=== PATIENT | female | born 1945 | race Asian ===

== ENCOUNTER → 2018-02-20 | Outpatient (CLI) | payer MEDICARE, OTHER ==
--- NOTE | 2018-03-11 08:44 | Diagnostic Imaging Report ---
#[id number] - MGSCRBIL #BILATERAL DIGITAL SCREENING MAMMOGRAM WITH CAD: 02/20/2018 CLINICAL: Routine screening. No prior exams were available for comparison. Current study contains 4 films. The tissue of both breasts is predominantly fatty. Current study was also evaluated with a Computer Aided Detection (CAD) system. There is benign appearing right breast tissue asymmetry/density and a single benign calcification in the right breast. No significant masses, calcifications, or other findings are seen in either breast. IMPRESSION: BENIGN There is no mammographic evidence of malignancy. A 1 year screening mammogram is recommended. The patient will be notified by letter of the results. Cooper Weiss Jr., D.O. cw/:03/10/2018 12:40:21 Account Analyst: Maricruz GIL)(Alyssa), [facility] letter sent: Normal Exam Mammogram BI-RADS: 2 Benign
== END ==
LOC: MAMMO 09:48
PROVIDERS: ATTEND Family Medicine Adult Medicine
DX: Z12.31 Encounter for screening mammogram for malignant neoplasm of breast (principal)
CPT/HCPCS: 77067

== ENCOUNTER 2018-09-13 21:36 | Inpatient (IN) | payer MEDICARE, OTHER ==
[~2018-09-13] VITALS: Ht 152.4 cm; Wt 55.8 kg
[2018-09-13] MEDS ORDERED: METRONIDAZOLE 500MG/NS 100ML 100 ML IV ONE (22:54)
[2018-09-13] MEDS ORDERED: PIPERACILLIN/TAZO 2.25 GM 50 ML IV ONE (22:55)
[2018-09-13] MEDS ORDERED: SODIUM CHLORIDE 0.9% 50ML 50 ML ONE (22:56)
[2018-09-13] MEDS ORDERED: IOPAMIDOL 370 MG/ML 200 ML INFUS..BTL INJ ONE (22:56)
[2018-09-13] MEDS: METRONIDAZOLE 500MG/NS 100ML 100 ML IV SCH (23:15)
[2018-09-13] MEDS ORDERED: SODIUM CHLORIDE 0.9% 1000ML 1,000 ML IV ONE (23:45)
[2018-09-14] VITALS (10 sets, daily range): BP systolic 85–106; BP diastolic 41–64
--- NOTE | 2018-09-14 00:02 | Diagnostic Imaging Report ---
EXAMINATION: CT of the abdomen and pelvis with contrast. TECHNIQUE: Spiral CT images of the abdomen and pelvis were performed from the lung bases to the lesser trochanters after the intravenous administration of 100 cc of Isovue 370 and the oral administration of water. Coronal and sagittal reformatted images were obtained. COMPARISON: None. CLINICAL HISTORY:Abscess on lower right buttock area, worsening DISCUSSION: ABDOMEN/PELVIS: LOWER THORAX:Calcified granuloma in the posterior right lower lobe (series 2, image 5). Linear opacities in the left lower lung and right middle lobe, consistent with subsegmental atelectasis or scarring. Mild cardiomegaly. Left atrial enlargement. HEPATOBILIARY: Calcified hepatic granulomas. 5 mm hypodense lesion in hepatic segment II (series 2, image 20), which is too small to characterize but likely represents a small cyst. No intra or extrahepatic biliary ductal dilation. GALLBLADDER: No radio-opaque stones or sludge. No wall thickening. SPLEEN: No splenomegaly. PANCREAS: No focal masses or ductal dilatation. ADRENALS: No adrenal nodules. KIDNEYS/URETERS: No hydronephrosis, stones, or solid mass lesions. 9 mm hypodense lesion in the posterior left superior to mid kidney, with measure fluid density consistent with a simple cyst (series 2, image 26). A 4 mm hypodense lesion in the mid to inferior left kidney (series 2, image 34) is too small to characterize. PELVIC ORGANS/BLADDER: Bladder unremarkable. Uterus unremarkable. 4.0 x 5.3 x 3.7 cm well-circumscribed homogeneous appearing mass in the right adnexa, with measured density of 30 HU (Series 2, Image 69). No fat is identified. This lesion is in the expected location of the right ovary. The left ovary is atrophic. PERITONEUM/RETROPERITONEUM: No free air or fluid. LYMPH NODES: No intra-abdominal, retroperitoneal, pelvic or inguinal lymphadenopathy. VESSELS: The celiac trunk,superior and inferior mesenteric and bilateral renal arteries are patent The portal, superior mesenteric and splenic veins are patent. Atherosclerotic calcification of the abdominal aorta and proximal vessels GI TRACT: No bowel dilation or evidence of obstruction. No pericolonic inflammatory changes. Appendix is well identified and normal in caliber. Stomach is unremarkable. BONES AND SOFT TISSUE: No aggressive lytic lesions. Generalized osteopenia. Degenerative disc changes in the lower lumbosacral spine, worse at L4-L5 and L5-S1 with mild rightward curvature. Subcutaneous fat stranding/phlegmonous changes in the medial aspect of the left gluteal fold (series 2, image 88 and coronal image 55), without well-defined discrete enhancing fluid collections. No enhancing fluid collections noted in the right buttock region. IMPRESSION: 1. Subcutaneous fat stranding/phlegmonous changes in the medial aspect of the left gluteal fold without evidence of drainable abscess. No subcutaneous soft tissue changes or enhancing fluid collections are noted in the right buttock region. 2. Indeterminate 5.3 cm well-circumscribed solid appearing mass in the right adnexa, in the expected location of the right ovary, which is indeterminate. Given the homogeneous appearance and lack of cystic component, an ovarian fibroma or cystoadenoma fibroma are considerations, however, contrast-enhanced pelvic MRI is recommended for further evaluation, on a nonemergent basis. 3. Prior granulomatous disease. Signed by: Dr. Marcus Salinas M.D. on 09/13/2018 11:59 PM
[2018-09-14] MEDS ORDERED: MORPHINE SULFATE 2 MG/ML SYR 1ML IV PRN (00:15)
[2018-09-14] MEDS ORDERED: CEFEPIME 1GM/NS 0.9% 50 ML 50 ML IV ONE ×2 (00:29→00:45)
--- OUTSIDE RECORDS SUMMARY | 2018-09-14 00:32 | XMS REPORT ---
[facility] Address Unknown Phone Unavailable Care Team Providers Care Bilingual Receptionist Name Role Phone KATE LAKE Unavailable Unavailable Pedrito MORAN Unavailable Unavailable SHERMAN SOSA Unavailable Unavailable Problems This patient has no known problems. Allergies, Adverse Reactions, Alerts This patient has no known allergies or adverse reactions. Medications This patient has no known medications. Results Test Description Test Time Test Comments Text Results Atomic Results Result Comments CT ABD/PEL WITH CONTRAST-HOPD 2018-09-13 23:46:[address] [address] Patient Name: LISETTE OCONNOR MR #: [id number] : 1945 Age/Sex: 73/F Req #: [id number] Adm Physician: Ordered by: KATE LAKE MD Report #: [id number] Location: [facility] Room/Bed: Procedure: [id number] HOPD/CT ABD/PEL WITH CONTRAST-HOPD Exam Date: Exam Time: REPORT STATUS: Signed EXAMINATION: CT of the abdomen and pelvis with contrast. TECHNIQUE: Spiral CT images of the abdomen and pelvis were performed from the lung bases to the lesser trochanters after the intravenous administration of 100 cc of Isovue 370 and the oral administration of water. Coronal and sagittal reformatted images were obtained. COMPARISON: None. CLINICAL HISTORY:Abscess on lower right buttock area, worsening DISCUSSION: ABDOMEN/PELVIS: LOWER THORAX:Calcified granuloma in the posterior right lower lobe (series 2, image 5). Linear opacities in the left lower lung and right middle lobe, consistent with subsegmental atelectasis or scarring. Mild cardiomegaly. Left atrial enlargement. HEPATOBILIARY: Calcified hepatic granulomas. 5 mm hypodense lesion in hepatic segment II (series 2, image 20), which is too small to characterize but likely represents a small cyst. No intra or extrahepatic biliary ductal dilation. GALLBLADDER: No radio-opaque stones or sludge. No wall thickening. SPLEEN: No splenomegaly. PANCREAS: No focal masses or ductal dilatation. ADRENALS: No adrenal nodules. KIDNEYS/URETERS: No hydronephrosis, stones, or solid mass lesions. 9 mm hypodense lesion in the posterior left superior to mid kidney, with measure fluid density consistent with a simple cyst (series 2, image 26). A 4 mm hypodense lesion in the mid to inferior left kidney (series 2, image 34) is too small to characterize. PELVIC ORGANS/BLADDER: Bladder unremarkable. Uterus unremarkable. 4.0 x 5.3 x 3.7 cm well- circumscribed homogeneous appearing mass in the right adnexa, with measured density of 30 HU (Series 2, Image 69). No fat is identified. This lesion is in the expected location of the right ovary. The left ovary is atrophic. PERITONEUM/RETROPERITONEUM: No free air or fluid. LYMPH NODES: No intra- abdominal, retroperitoneal, pelvic or inguinal lymphadenopathy. VESSELS: The celiac trunk,superior and inferior mesenteric and bilateral renal arteri es are patent The portal, superior mesenteric and splenic veins are patent. Atherosclerotic calcification of the abdominal aorta and proximal vessels GI TRACT: No bowel dilation or evidence of obstruction. No pericolonic inflammatory changes. Appendix is well identified and normal in caliber. Stomach is unremarkable. BONES AND SOFT TISSUE: No aggressive lytic lesions. Generalized osteopenia. Degenerative disc changes in the lower lumbosacral spine, worse at L4-L5 and L5-S1 with mild rightward curvature. Subcutaneous fat stranding/phlegmonous changes in the medial aspect of the left gluteal fold (series 2, image 88 and coronal image 55), without well-defined discrete enhancing fluid collections. No enhancing fluid collections noted in the right buttock region. IMPRESSION: 1. Subcutaneous fat stranding/phlegmonous changes in the medial aspect of the left gluteal fold without evidence of drainable abscess. No subcutaneous soft tissue changes or enhancing fluid collections are noted in the right buttock region. 2. Indeterminate 5.3 cm well-circumscribed solid appearing mass in the right adnexa, in the expected location of the right ovary, which is indeterminate. Given the homogeneous appearance and lack of cystic component, an ovarian fibroma or cystoadenoma fibroma are considerations, however, contrast-enhanced pelvic MRI is recommended for further evaluation, on a nonemergent basis. 3. Prior granulomatous disease. Signed by: Dr. Caridad Salinas M.D. on 09/13/2018 11:59 PM Dictated By: CARIDAD SALINAS MD 58 Transcribed By: GISSEL on 09/13/182358 COPY TO: KATE LAKE MD MAMMOGRAPHY DIGITAL SCR BILAT 2018-02-20 11:06:00 [place] [address] Patient Name: LISETTE OCONNOR MR #: [id number] : 1945 Age/Sex: 72/F Req #: [id number] [facility] Physician: Ordered by: ODILIA MORAN M.D. Report #: [id number] Location: MAMMO Room/Bed: Procedure: [id number] MG/MAMMOGRAPHY DIGITAL SCR BILAT Exam Date: 02/20/18 Exam Time: 1033 REPORT STATUS: Signed #[id number] - MGSCRBIL #BILATERAL DIGITAL SCREENING MAMMOGRAM WITH CAD: 02/20/2018 CLINICAL: Routine screening. No prior exams were available for comparison. Current study contains 4 films. The tissue of both breasts is predominantly fatty. Current study was also evaluated with a Computer Aided Detection (CAD) system. There is benign appearing right breast tissue asymmetry/density and a single benign calcification in the right breast. No significant masses, calcifications, or other findings are seen in either breast. IMPRESSION: BENIGN There is no mammographic evidence of malignancy. A 1 year screening mammogram is recommended. The patient will be notified by letter of the results. Kulwant Weiss Jr., D.O. cw/:03/10/2018 12:40:21 Make Up Arranger: Maricruz GIL)(Alyssa), [facility] letter sent: Normal Exam Mammogram BI-RADS: 2 Benign Dictated By: KULWANT WEISS DO 1240 Trans cribed By: EUFEMIA on 03/10/18 1240 COPY TO: ODILIA MORAN M.D. HEMOGLOBIN A1C 2017-02-17 14:19:00 HEMOGLOBIN A1C (BEAKER) (test pedc=342) 5.4 % 4.3-6.1 [id number] 14:10:00* Test Item Value Reference Range Comments THYROID STIMULATING HORMONE (BEAKER) (test gbzi=449) 1.85 uIU/mL 0.35-4.94 VITAMIN D, [id number] 14:10:00* Test Item Value Reference Range Comments VITAMIN D 25-OH (BEAKER) (test qkxg=9472) 17.2 ng/mL 6.6-49.9 Effective 02/05/2017: Reference Range ChangeNew: 6.6-49.9 ng/mL Previous: 13.0 -47.8 ng/mLRecommended Vitamin D Target Range: 30.0-40.0 ng/mLCOMPREHENSIVE METABOLIC [id number] 13:53:00* Test Item Value Reference Range Comments TOTAL PROTEIN (BEAKER) (test sqix=059) 8.0 gm/dL 6.0-8.3 Specimen slightly hemolyzed ALBUMIN (BEAKER) (test aded=7979) 4.3 g/dL 3.5-5.0 Specimen slightly hemolyzed ALKALINE PHOSPHATASE (BEAKER) (test tdmp=789) 53 U/L 40-150 BILIRUBIN TOTAL (BEAKER) (test mfyx=406) 0.8 mg/dL 0.2-1.2 Specimen slightly hemolyzed SODIUM (BEAKER) (test cnqz=222) 140 meq/L 136-145 POTASSIUM (BEAKER) (test wdvu=035) 4.2 meq/L 3.5-5.1 Specimen slightly hemolyzed CHLORIDE (BEAKER) (test zbtw=447) 106 meq/L 98-107 CO2 (BEAKER) (test fjoh=490) 25 meq/L 22-29 BLOOD UREA NITROGEN (BEAKER) (test vphn=663) 9 mg/dL 7-21 CREATININE (BEAKER) (test fmir=424) 0.74 mg/dL 0.57-1.25 Specimen slightly hemolyzed GLUCOSE RANDOM (BEAKER) (test llwa=753) 92 mg/dL 70-105 CALCIUM (BEAKER) (test bmeb=312) 9.7 mg/dL 8.4-10.2 AST (SGOT) (BEAKER) (test fwux=781) 22 U/L 5-34 Specimen slightly hemolyzed ALT (SGPT) (BEAKER) (test ljzl=259) 16 U/L 6-55 Specimen slightly hemolyzed EGFR (BEAKER) (test ltmi=3296) 78 mL/min/1.73 sq m ESTIMATED GFR IS NOT ACCURATE CREATININE CLEARANCE IN PREDICTING GLOMERULAR FILTRATION RATE. ESTIMATED GFR IS NOT APPLICABLE FOR DIALYSIS PATIENTS. LIPID [id number] 13:53:00* Test Item Value Reference Range Comments TRIGLYCERIDES (BEAKER) (test dplv=716) 88 mg/dL Specimen slightly hemolyzed CHOLESTEROL (BEAKER) (test cxch=285) 191 mg/dL Specimen slightly hemolyzed HDL CHOLESTEROL (BEAKER) (test urbp=703) 67 mg/dL LDL CHOLESTEROL CALCULATED (BEAKER) (test dusj=075) 106 mg/dL Triglyceride Reference Range: Low Risk <150 Borderline 150-199 High Risk 200-499 Very High Risk >=500Cholesterol Reference Range: Low Risk <200 Borderline 200-239 High Risk >240HDL Cholesterol Reference Range: Low Risk >=60 High Risk <40LDL Cholesterol Reference Range: Optimal <100 Near Optimal 100-129 Borderline 130-159 High 160-189 Very High >=190
--- OUTSIDE RECORDS SUMMARY | 2018-09-14 00:32 | XMS REPORT | Clinical Summary ---
Author Author [facility] Address Unknown Phone Unavailable Care Team Providers Care Post Closer Name Role Phone Sharpless PCP Allergies Not on File Medications Not on file Active Problems Not on file Social History Date Tobacco Use Types Packs/Day Years Used Never Assessed Sex Assigned at Date Recorded Not on file Industry Job Start Date Occupation Not on file Not on file Not on file Travel End Travel History Travel Start No recent travel history available. Last Filed Vital Signs Not on file Plan of Treatment Not on file Results Not on fileafter 09/13/2017 Insurance Payer Benefit Subscriber ID Type Phone Address Plan / Group MEDICAID - MEDICAID [facility] xxxxxxxxx Medicaid CARE COMM STAR Contracted PLAN
[2018-09-14] MEDS ORDERED: ACETAMINOPHEN 325 MG TAB ONE ×2 (00:34→00:36)
[2018-09-14] MEDS: CIPROFLOXACIN 400 MG/D5W 200ML 200 ML IV SCH ×2 (00:45→12:04)
[2018-09-14] MEDS ORDERED: ACETAMINOPHEN 325 MG TAB PO ONE (01:00)
[2018-09-14] MEDS ORDERED: ACETAMINOPHEN 325 MG TAB PO PRN ×2 (01:00→02:45)
[2018-09-14] MEDS ORDERED: PANTOPRAZOLE SO40 MG PO (01:04)
[2018-09-14] MEDS ORDERED: METOPROLOL SUCC50 MG PO (01:04)
[2018-09-14] MEDS ORDERED: PRAVASTATIN SOD40 MG (01:04)
[2018-09-14] MEDS ORDERED: ELIQUIS PO (01:04)
[2018-09-14] MEDS: VANCOMYCIN 1GM/NS 250 ML 250 ML IV SCH ×2 (01:11→13:01)
--- NOTE | 2018-09-14 02:15 | NUR ---
Received patient was received from shellie Kauffman from free standing ER, patient was reported to being coming into this hospital with complains of abscess in the anal area, patient arrived in the unit lethargic, blood pressure checked was 88/69, Dr. Kinsey's was made aware and ordered ns bolus 1000 x 1, was administered and bp was rechecked and the bp was still at 94/60, Kelly was made aware and ordered to keep patient on ns at 100. patient is currently fairly stable, with temp. 97.7 and hr at 60. will continue to monitor.
[2018-09-14] MEDS ORDERED: SODIUM CHLORIDE 0.9% 1000ML 1,000 ML IV ONE (02:45)
[2018-09-14] MEDS ORDERED: ONDANSETRON HCL INJ 2MG/ML 2ML 2 MG/ML VIAL IV PRN (02:45)
[2018-09-14] MEDS ORDERED: SODIUM CHLORIDE 0.9% 1000ML 1,000 ML ONE (05:06)
[2018-09-14] MEDS: SODIUM CHLORIDE 0.9% 1000ML 1,000 ML IV SCH ×2 (05:35→15:15)
[2018-09-14] MEDS: PIPER-TAZ 3.375 GM 50 ML IV SCH ×3 (05:41→22:00)
--- NOTE | 2018-09-14 06:45 | NUR ---
patient endorsed to next shift for continuity of care.
[2018-09-14] MEDS ORDERED: HYDRALAZINE HCL 20 MG/ML VIAL IV PRN (07:00)
[2018-09-14] MEDS: FAMOTIDINE 20 MG TAB PO SCH ×2 (09:29→18:14)
[2018-09-14] MEDS ORDERED: PANTOPRAZOLE SOD 40 MG TABEC PO SCH (10:00)
--- NOTE | 2018-09-14 14:00 | NUR ---
WOUND CARE CONSULTATION - INITIAL EVALUATION Patient admitted from home to ER for perirectal/ perianal pain. DX: Mary-anal Abscess CT of Abdomen and Pelvis- revealed worsening Abscess on 07/13/18 Dr. Gayle on case for SX intervention/ Abscession. - Procedure pending. Eliquis placed on hold. ABX: Vancomycin, Cipro, Zosyn. WC consulted for evaluation of ulcer of perianal area. PATIENT VISIT: Patient Calm in bed. Daughter at bedside. Present with closed/ non-draining Abscess of right perirectal area. Education provided for patient to avoid laying on back at this time to promote comfort and reducing complication of area while awaiting surgical intervention. Dr. Gayle on case and managing care of Abscess. Will follow as needed/ upon request. No Pressure ulcers identified. Ed Score 18 Conservative PUP IMPRESSION: Right Mary-Anal Abscess- Closed. RECOMMENDATION: Conservative Care while awaiting Abscession by Dr. Gayle. 1. Wash area with Hibiclens Soap and Water then Pat Dry Thoroughly Daily. 2. Alternating Pressure Air Mattress 3. Turn and Reposition left - right. Avoid back for comfort. Thank you for consulting with Wound Care. Addendum: 09/14/18 at 1416 by Moose Coombs RN Amended: Links added.
[2018-09-14] MEDS: METRONIDAZOLE 500MG/NS 100ML 100 ML IV SCH ×2 (14:48→22:00)
[2018-09-14] MEDS ORDERED: NON-FORMULARY MEDICATION ([Eliquis] 5 MG) PO SCH (17:00)
--- NOTE | 2018-09-14 18:14 | Consultation ---
DATE OF CONSULTATION: 09/14/2018 CHIEF COMPLAINT: Anal pain. HISTORY OF PRESENT ILLNESS: The patient is a 73-year-old female with 2-week history of perianal pain and redness. The patient stated the pain has worsened in the last 2 days. Subjective fever and chills. No nausea, vomiting, or diarrhea. PAST MEDICAL HISTORY: Significant for hypercholesterolemia and coronary artery disease. SURGICAL HISTORY: Positive for coronary artery bypass graft 10 years ago. ALLERGIES: SHE HAS ALLERGIC REACTION TO SULFA AND DOXYCYCLINE. SOCIAL HABITS: No smoking or alcohol abuse. REVIEW OF SYSTEMS: No chest pain or shortness of breath. PHYSICAL EXAMINATION: VITAL SIGNS: Stable. She is afebrile. Temperature 100. GENERAL: The patient is awake and alert, in moderate discomfort. HEENT: Sclera nonicteric. NECK: Supple. LUNGS: Clear. HEART: Regular rate and rhythm. ABDOMEN: Soft and nontender. Anal exam revealed a left perianal abscess with some fluctuance and tenderness. EXTREMITIES: Without cyanosis or edema. LABORATORY DATA: The patient's CT scan showed evidence of soft tissue swelling in the left gluteal area. ASSESSMENT: Perianal abscess. PLAN: Hold Eliquis. Drainage of abscess. Anesthesia to follow. MD LLUVIA Vaca/MODToshia /[id number]
[2018-09-14] MEDS ORDERED: MORPHINE SULFATE INJ 4 MG/ML INJ 1ML IV PRN (18:30)
--- NOTE | 2018-09-14 19:20 | NUR ---
Patient received lying in bed. Daughter at bedside. AAO x 3. Patient had no complaints of pain. Respirations even and non-labored. Fall precautions implemented. Patient instructed to call for assistance when needed. Call light within reach.
[2018-09-14] MEDS: PRAVASTATIN 20 MG TAB PO SCH (21:56)
[2018-09-14] MEDS: METOPROLOL SUCCINATE 50 MG TAB XL PO SCH (22:00)
--- NOTE | 2018-09-14 23:50 | Consultation ---
DATE OF CONSULTATION: REASON FOR CONSULTATION: Abscess on buttock area. HISTORY OF PRESENT ILLNESS: This patient who is a very pleasant [place] lady 73-year-old, who comes in with pain, redness and swelling on her buttock area on the left side. No history of trauma or injury. The patient came to the emergency room where she was evaluated, started on IV antibiotic and being admitted. Her daughter is at the bedside. The patient said that this happened two weeks ago. She had rash in the perirectal area. She used Lotrisone without any improvement. Had without improvement. The pain became worse with redness and swelling. The patient came to the emergency room. PAST MEDICAL HISTORY: Hypertension, hyperlipidemia, atrial fibrillation, GERD. PAST SURGICAL HISTORY: Atrial septal defect 10 years ago. MEDICATIONS: She is on triamcinolone, Protonix, Eliquis, pravastatin. ALLERGIES: SULFA DRUGS AND DOXYCYCLINE. SOCIAL HISTORY: There is no smoking, drug abuse, or alcohol abuse. FAMILY HISTORY: Hypertension. REVIEW OF SYSTEMS: GENERAL: She is feeling fair. HEENT: There is no headache, visual changes, hearing changes. GI: There is no nausea, no vomiting, no diarrhea. CARDIAC: There is no arrhythmia. NEURO: No seizure activity. SKIN: There is no other rash. JOINTS: There is no erythema or edema. PHYSICAL EXAMINATION: GENERAL: She is currently alert, oriented, does not seem to be in acute distress. VITAL SIGNS: Stable. Afebrile. HEENT: Normocephalic. Not icteric. NECK: Supple. No JVD. No lymphadenopathy. No thyromegaly. CHEST: Clear bilateral. HEART: S1, S2. No S3, S4, or murmur. ABDOMEN: Soft. Bowel sounds present. No tenderness. No hepatosplenomegaly. EXTREMITIES: No edema. On the right buttock, there is erythema. There is induration noted in the perirectal area. CAT scan reviewed. White count 10.6, sodium 139. Laboratory data reviewed. IMPRESSION: I think perirectal abscess affecting the right. Diabetes mellitus. From Infectious Disease point of view, I would recommend surgical evaluation. She is currently on Zosyn, vancomycin. Can discontinue Flagyl. Recheck vancomycin trough. Discontinue cefepime. Discontinue Cipro. We will continue with vancomycin and Zosyn. We will modify after the availability of cultures once I and D is done. Discussed with the patient and her family at the bedside. MD AYO Garcia/PARVEEN /[id number]
[2018-09-15] VITALS (8 sets, daily range): BP systolic 96–110; BP diastolic 47–58
[2018-09-15] MEDS: SODIUM CHLORIDE 0.9% 1000ML 1,000 ML IV SCH ×3 (01:15→21:37)
[2018-09-15] MEDS: VANCOMYCIN 1GM/NS 250 ML 250 ML IV SCH ×2 (01:20→12:15)
--- NOTE | 2018-09-15 04:58 | NUR ---
Patient's cardiac rhythm recorded as A-Fib with a heart rate of 135. Nurse Practitioner (Ari Ulrich) notified. New order received for Digoxin 0.125 mg IV x 1.
[2018-09-15] MEDS ORDERED: DIGOXIN INJ 0.25 MG/ML 2 ML AMP IV ONE (05:00)
--- NOTE | 2018-09-15 05:15 | NUR ---
Patient informed of recommended surgical procedure----Incisional Drainage of Perianal abscess. Patient verbalized understanding and voluntarily signed "Disclosure and Consent" form.
[2018-09-15 05:34] LABS: BASOPHILS % 0.2 % (0.0-1.0); EOSINOPHILS % 0.1 % (0.0-6.0); HEMATOCRIT 34.1 % (34.2-44.1); LYMPHOCYTES # (AUTO) 1.5 (1.0-3.2); LYMPHOCYTES % 13.2 % (18.0-39.1); MEAN CORPUSCULAR HEMOGLOBIN 31.2 pg (28-32); MEAN CORPUSCULAR HGB CONC 32.3 g/dL (31-35); MEAN CORPUSCULAR VOLUME 96.6 fL (81-99); MONOCYTES # (AUTO) 0.9 (0.2-0.8); MONOCYTES % 7.5 % (4.4-11.3); NEUTROPHILS # (AUTO) 9.1 (2.1-6.9); NEUTROPHILS % 78.7 % (38.7-80.0); PLATELET COUNT 140 x10e3/uL (140-360); RED BLOOD COUNT 3.53 x10e6/uL (3.6-5.1); RED CELL DISTRIBUTION WIDTH 11.3 % (11.7-14.4)
[2018-09-15] MEDS: METRONIDAZOLE 500MG/NS 100ML 100 ML IV SCH ×3 (05:40→22:00)
[2018-09-15 05:56] LABS: ANION GAP 11.4 mmol/L (8-16); BLOOD UREA NITROGEN 6 mg/dL (7-26); BUN/CREATININE RATIO 9 (6-25); CALCIUM 8.3 mg/dL (8.4-10.2); CARBON DIOXIDE 18 mmol/L (22-29); CHLORIDE 108 mmol/L (98-107); CREATININE, SERUM 0.69 mg/dL (0.57-1.11); EST GLOMERULAR FILTRATION RATE > 60 ML/MIN (60-); GLUCOSE 100 mg/dL (74-118); MAGNESIUM 1.8 MG/DL (1.3-2.1); POTASSIUM 3.4 mmol/L (3.5-5.1); SODIUM 134 mmol/L (136-145)
[2018-09-15 06:08] LABS: B-TYPE NATRIURETIC PEPTIDE2 852.7 pg/mL (0-100)
[2018-09-15 06:21] LABS: FREE T4 (FREE THYROXINE) 0.84 ng/dL (0.9-1.8); THYROID STIMULATING HORMONE 1.895 uIU/mL (0.350-4.940)
[2018-09-15] MEDS: PIPER-TAZ 3.375 GM 50 ML IV SCH ×3 (06:40→22:30)
--- NOTE | 2018-09-15 07:11 | NUR ---
Patient resting comfortably. Shift report given to oncoming nurse about patient status.
[2018-09-15] MEDS: FAMOTIDINE 20 MG TAB PO SCH ×2 (07:30→15:48)
[2018-09-15] MEDS: PANTOPRAZOLE SOD 40 MG TABEC PO SCH (07:30)
--- NOTE | 2018-09-15 08:00 | NUR ---
Per tele monitor patient rhythm changing from afib 140s to SR within seconds. See orders
--- NOTE | 2018-09-15 08:10 | NUR ---
Per tele monitor rhythm SR
[2018-09-15] MEDS ORDERED: POTASSIUM CHLORIDE 20MEQ/100ML 100 ML IV ONE (08:45)
[2018-09-15] MEDS: METOPROLOL TARTRATE INJ 1 MG/ML VIAL IV PRN (11:46)
--- NOTE | 2018-09-15 12:00 | NUR ---
Taken for procedure. No s/s of acute distress noted.
[2018-09-15] MEDS ORDERED: BUPIVACAINE 0.5%/EPI 30 ML SDV INJ ONE (13:07)
[2018-09-15] MEDS ORDERED: LIDOCAINE HCL 2% 30 ML TUBE ONE (13:07)
[2018-09-15 14:05] LABS: HYPOCHROMASIA SLIGHT; RBC MORPHOLOGY COMMENT NORMAL
[2018-09-15 14:06] LABS: PLATELET ESTIMATE SLIGHTLY DECREASED; PLATELET MORPHOLOGY COMMENT NORMAL
[2018-09-15 14:10] LABS: ANISOCYTOSIS SLIGHT
--- NOTE | 2018-09-15 14:15 | NUR ---
Visit made by the Spiritual Care Department Pastoral Visitor, Princess Mckoy. Pt sleeping soundly and no family present. Pastoral Visitor left a card describing availability of rubber compounder formulator and instructions on how to contact a rubber compounder formulator. AMBROCIO BELLAMY Club Lounge Attendant Spiritual Care Department O: [phone] Pager: [phone] ([phone] number calling from)
--- NOTE | 2018-09-15 14:16 | NUR ---
Received patient back from procedure via bed. Resting with eyes closed. Arousable to verbal stimuli. Respirations even and unlabored. s/p perianal abcess drainage. Dressing to site clean, dry, and intact. Instructed to call for assistance.
[2018-09-15] MEDS ORDERED: MORPHINE SULFATE INJ 4 MG/ML INJ 1ML IV PRN (15:30)
[2018-09-15] MEDS ORDERED: ONDANSETRON HCL 4 MG ORAL DISINTEGRATING TAB PO PRN (17:00)
[2018-09-15] MEDS ORDERED: ROCURONIUM BROMIDE 10 MG/ML 5ML VIAL ONE (17:51)
[2018-09-15] MEDS ORDERED: LIDOCAINE HCL 2% LOCAL INJ 5 ML SDV VIAL INJ ONE (17:51)
[2018-09-15] MEDS ORDERED: SUCCINYLCHOLINE 200 MG/10 ML SYR ONE (17:51)
[2018-09-15] MEDS ORDERED: DEXAMETHASONE SOD PHOS INJ 4 MG/ML VIAL ONE (17:51)
[2018-09-15] MEDS ORDERED: ONDANSETRON HCL INJ 2MG/ML 2ML 2 MG/ML VIAL ONE (17:51)
[2018-09-15] MEDS ORDERED: PROPOFOL IV EMULSION 10 MG/ML 20 ML VIAL ONE (17:51)
[2018-09-15] MEDS ORDERED: KETOROLAC TROMETHAMINE 30 MG/ML VIAL ONE (17:51)
[2018-09-15] MEDS ORDERED: SEVOFLURANE INHAL SOLN 250 ML PEN BTL ONE (17:51)
[2018-09-15] MEDS ORDERED: EPHEDRINE SULFATE INJ 50 MG/10 ML SYR ONE (17:51)
[2018-09-15] MEDS ORDERED: FENTANYL CITRATE/PF 100MCG/2 ML INJ ONE (18:10)
--- NOTE | 2018-09-15 19:00 | NUR ---
Paged to clarify orders for flagyl. Awaiting for call back
--- NOTE | 2018-09-15 19:05 | NUR ---
Report given to oncoming nurse of patient's status. Resting in bed. No s/s of acute distress noted. Side rails upx2, call light within reach.
--- NOTE | 2018-09-15 19:25 | NUR ---
Patient received lying in bed. Daughter at bedside. AAO x 3. No complaints of pain. No signs of respiratory distress. Dressing to left gluteal s/p I & D is clean, dry and intact. Call light within reach.
[2018-09-15] MEDS: METOPROLOL SUCCINATE 50 MG TAB XL PO SCH (21:00)
[2018-09-15] MEDS: PRAVASTATIN 20 MG TAB PO SCH (21:37)
--- NOTE | 2018-09-15 23:45 | NUR ---
Blood specimen sent to lab for Vancomycin trough level.
[2018-09-16] VITALS (9 sets, daily range): BP systolic 85–132; BP diastolic 46–61
[2018-09-16] MEDS: VANCOMYCIN 1GM/NS 250 ML 250 ML IV SCH ×2 (01:30→14:16)
[2018-09-16 05:14] LABS: BASOPHILS % 0.1 % (0.0-1.0); HEMATOCRIT 33.3 % (34.2-44.1); HEMOGLOBIN 10.6 g/dL (12.0-16.0); LYMPHOCYTES # (AUTO) 0.8 (1.0-3.2); MEAN CORPUSCULAR HEMOGLOBIN 31.1 pg (28-32); MEAN CORPUSCULAR HGB CONC 31.8 g/dL (31-35); MEAN CORPUSCULAR VOLUME 97.7 fL (81-99); MONOCYTES # (AUTO) 0.6 (0.2-0.8); MONOCYTES % 5.8 % (4.4-11.3); NEUTROPHILS # (AUTO) 9.4 (2.1-6.9); NEUTROPHILS % 86.6 % (38.7-80.0); PLATELET COUNT 154 x10e3/uL (140-360); RED BLOOD COUNT 3.41 x10e6/uL (3.6-5.1); RED CELL DISTRIBUTION WIDTH 11.4 % (11.7-14.4)
[2018-09-16 05:34] LABS: ANION GAP 11.3 mmol/L (8-16); BLOOD UREA NITROGEN 10 mg/dL (7-26); BUN/CREATININE RATIO 15 (6-25); CALCIUM 8.5 mg/dL (8.4-10.2); CARBON DIOXIDE 19 mmol/L (22-29); CHLORIDE 114 mmol/L (98-107); CREATININE, SERUM 0.68 mg/dL (0.57-1.11); EST GLOMERULAR FILTRATION RATE > 60 ML/MIN (60-); GLUCOSE 125 mg/dL (74-118); POTASSIUM 4.3 mmol/L (3.5-5.1); SODIUM 140 mmol/L (136-145)
[2018-09-16] MEDS: METRONIDAZOLE 500MG/NS 100ML 100 ML IV SCH ×3 (06:00→21:41)
[2018-09-16] MEDS: PIPER-TAZ 3.375 GM 50 ML IV SCH ×3 (06:20→21:01)
--- NOTE | 2018-09-16 07:00 | NUR ---
BEDSIDE SHIFT REPORT RECEIVED FROM NIGHT RN. PT DENIES NEEDS AT THIS TIME.
--- NOTE | 2018-09-16 07:16 | NUR ---
Walking rounds done. Patient resting comfortably. Shift report given to oncoming nurse.
[2018-09-16] MEDS: PANTOPRAZOLE SOD 40 MG TABEC PO SCH (07:41)
[2018-09-16] MEDS: SODIUM CHLORIDE 0.9% 1000ML 1,000 ML IV SCH ×2 (07:41→17:15)
[2018-09-16] MEDS: FAMOTIDINE 20 MG TAB PO SCH ×2 (07:41→16:14)
[2018-09-16] MEDS ORDERED: FUROSEMIDE INJ 10 MG/ML 2 ML VIAL IV ONE (08:30)
[2018-09-16] MEDS: APIXABAN 5 MG TABLET PO SCH ×2 (08:45→16:15)
--- NOTE | 2018-09-16 14:15 | NUR ---
CALLED DR. GAGNON OFFICE AT 1230 FOR ORDERS AFTER REPORTING VANC TROUGH OF 10.4. CALLED AL AND RECEIVED AN ORDER TO GIVE.
--- NOTE | 2018-09-16 17:00 | NUR ---
DRESSING CHANGED PER DR. CHARLTON INSTRUCTIONS WELL PARTIAL IODAFORM REMOVED. PT TOLERATED.
[2018-09-16] MEDS: METOPROLOL TARTRATE INJ 1 MG/ML VIAL IV PRN (20:09)
[2018-09-16] MEDS: PRAVASTATIN 20 MG TAB PO SCH (21:01)
[2018-09-16] MEDS: METOPROLOL SUCCINATE 50 MG TAB XL PO SCH (21:01)
[2018-09-17] VITALS (8 sets, daily range): BP systolic 86–119; BP diastolic 48–60
[2018-09-17] MEDS: VANCOMYCIN 1GM/NS 250 ML 250 ML IV SCH ×2 (00:03→14:28)
[2018-09-17 05:31] LABS: BASOPHILS % 0.3 % (0.0-1.0); EOSINOPHILS % 0.4 % (0.0-6.0); HEMATOCRIT 34.7 % (34.2-44.1); LYMPHOCYTES # (AUTO) 1.2 (1.0-3.2); LYMPHOCYTES % 16.1 % (18.0-39.1); MEAN CORPUSCULAR HEMOGLOBIN 30.5 pg (28-32); MEAN CORPUSCULAR HGB CONC 31.7 g/dL (31-35); MEAN CORPUSCULAR VOLUME 96.1 fL (81-99); MONOCYTES # (AUTO) 0.6 (0.2-0.8); MONOCYTES % 8.3 % (4.4-11.3); NEUTROPHILS # (AUTO) 5.4 (2.1-6.9); NEUTROPHILS % 74.5 % (38.7-80.0); PLATELET COUNT 203 x10e3/uL (140-360); RED BLOOD COUNT 3.61 x10e6/uL (3.6-5.1); RED CELL DISTRIBUTION WIDTH 11.5 % (11.7-14.4)
[2018-09-17] MEDS: PIPER-TAZ 3.375 GM 50 ML IV SCH (05:39)
[2018-09-17] MEDS: SODIUM CHLORIDE 0.9% 1000ML 1,000 ML IV SCH (05:39)
[2018-09-17 05:55] LABS: ANION GAP 10.7 mmol/L (8-16); BLOOD UREA NITROGEN 9 mg/dL (7-26); BUN/CREATININE RATIO 12 (6-25); CALCIUM 8.2 mg/dL (8.4-10.2); CARBON DIOXIDE 20 mmol/L (22-29); CHLORIDE 112 mmol/L (98-107); CREATININE, SERUM 0.73 mg/dL (0.57-1.11); EST GLOMERULAR FILTRATION RATE > 60 ML/MIN (60-); GLUCOSE 135 mg/dL (74-118); MAGNESIUM 1.7 MG/DL (1.3-2.1); POTASSIUM 3.7 mmol/L (3.5-5.1); SODIUM 139 mmol/L (136-145)
[2018-09-17] MEDS: METRONIDAZOLE 500MG/NS 100ML 100 ML IV SCH (06:29)
--- NOTE | 2018-09-17 07:00 | NUR ---
BEDSIDE SHIFT REPORT RECEIVED FROM NIGHT RN. PT DENIES NEEDS AT THIS TIME.
[2018-09-17] MEDS ORDERED: FUROSEMIDE INJ 10 MG/ML 4 ML VIAL IV NR (08:15)
[2018-09-17] MEDS: FAMOTIDINE 20 MG TAB PO SCH ×2 (08:31→17:31)
[2018-09-17] MEDS: PANTOPRAZOLE SOD 40 MG TABEC PO SCH (08:31)
[2018-09-17] MEDS: APIXABAN 5 MG TABLET PO SCH ×2 (08:31→17:31)
[2018-09-17] MEDS: ASCORBIC ACID 500 MG TAB PO SCH ×2 (09:21→17:31)
[2018-09-17] MEDS: MAGNESIUM OXIDE 400 MG TAB PO SCH ×2 (09:21→17:31)
[2018-09-17] MEDS: MULTIVITAMINS/MINERALS TAB PO SCH (09:21)
[2018-09-17] MEDS: ZINC SULFATE 220 MG CAP PO SCH (09:21)
[2018-09-17] MEDS: BENZONATATE 100 MG CAP PO SCH ×2 (09:21→17:31)
--- NOTE | 2018-09-17 09:26 | Diagnostic Imaging Report ---
EXAM: CHEST SINGLE (PORTABLE), AP Portable DATE: 09/17/2018 Time stamp on exam: 8:35 AM INDICATION: Cough COMPARISON: None FINDINGS: LINES/TUBES: None LUNGS: Mild pulmonary vascular congestion. PLEURA: No effusions or pneumothorax. HEART AND MEDIASTINUM: Normal size and contour. BONES AND SOFT TISSUES: No acute findings. IMPRESSION: Mild pulmonary vascular congestion. Signed by: Dr. Cooper Weiss DO on 09/17/2018 9:23 AM
--- NOTE | 2018-09-17 10:00 | NUR ---
AL NOTIFIED PT POSSATIVE FOR MRSA WOUND. PT ON VANC. NO NEW ORDERS.
--- NOTE | 2018-09-17 11:11 | NUR ---
CM SPOKE TO PATIENT AND PATIENT DAUGHTER AT BEDSIDE REGARDING HOME HEALTH ORDER FOR WOUND CARE. PATIENT AND PATIENT DAUGHTER INFORMED OF HOME HEALTH SERVICES IN DETAIL. PATIENT AND PATIENT DAUGHTER REFUSED HOME HEALTH AND ASKED FOR OUTPATIENT SERVICES. PATIENT AND PATIENT DAUGHTER GIVEN OUTPATIENT SERVICE PROVIDERS BUT REQUESTED [facility]. CHOICE LETTER SIGNATURE DELEGATED TO DAUGHTER. CHOICE LETTER SIGNED AND PLACED IN CHART. CLINICAL SUCCESSFULLY FAXED TO [facility]. PENDING ACCEPTANCE AND APPOINTMENT DATE FOR DISCHARGE. [facility] [address] [place] [id number] P) [phone] (F) [phone] Addendum: 09/17/18 at 1116 by aKtlyn Vu CM FACESHEET AND ORDER FAXED TO WOUND CARE CLINIC.
--- NOTE | 2018-09-17 11:15 | NUR ---
DISCHARGE DISPOSITION: PATIENT DISCHARGING HOME WITH OUTPATIENT WOUND CARE SERVICES WITH: [facility] [address] [place] [address] [place] [address], [place] [address] P) [phone] (f) [phone] Addendum: 09/17/18 at 1117 by Victor Hugo Vu CM SALESPERSON MEN'S FURNISHINGS: VICTOR HUGO DICKENS [phone]
[2018-09-17] MEDS: ALBUTEROL/IPRATROPIUM 3 ML NEB NEB SCH ×2 (13:00→19:30)
--- NOTE | 2018-09-17 13:19 | NUR ---
DISCHARGE DISPOSITION: PATIENT DISCHARGING HOME WITH OUTPATIENT WOUND CARE SERVICES WITH: [facility] [address] [facility] [address] [place] [address] (P) [phone] (F) [phone] TENTATIVE APPOINTMENT DATE: SUNDAY SEPTEMBER 23, 2018 @ 08:00 A.M. CM CONFIRMED WITH WOUND CARE CLINIC: SAUNDRA
--- NOTE | 2018-09-17 15:34 | NUR ---
ISABEL SPOKE TO SAUNDRA WITH [facility]. PATIENT INSURANCE NOT ACCEPTED BY ANY PHYSICIANS IN THE CLINIC SO THEY WILL NOT BE ABLE TO PROVIDE SERVICES. BEDSIDE RN KAREN NOTIFIED AND PATIENT DAUGHTER NOTIFIED. ISABEL CALLED AND LM WITH AKIL RIVERA WITH PATIENT INSURANCE [facility] [employer] AT [phone] TO FIND AN OUTPATIENT CLINIC THAT CAN TAKE PATIENT'S INSURANCE. PATIENT TO STAY IN HOSPITAL UNTIL CLINIC AND APPOINTMENT TIME CAN BE SECURED AT THIS TIME.
--- NOTE | 2018-09-17 16:18 | NUR ---
SAUNDRA CALLED CM BACK REGARDING PATIENT ACCEPTANCE INTO THE [facility]OUND [facility]IN[facility]. HER OFFICE RAN THE BENEFITS AND THE PATIENT HAS CARE IMPROVEMENT UNDER [facility] AND THE SECONDARY IS [facility] WHICH MEANS THEY ABLE TO ACCEPT PATIENT INTO CLINIC. THE August APPOINTMENT IS STILL SCHEDULED AND CONFIRMED.
[2018-09-17] MEDS: PRAVASTATIN 20 MG TAB PO SCH (21:20)
[2018-09-17] MEDS: METOPROLOL SUCCINATE 50 MG TAB XL PO SCH (21:20)
[2018-09-18] VITALS (7 sets, daily range): BP systolic 92–140; BP diastolic 51–64
[2018-09-18] MEDS: VANCOMYCIN 1GM/NS 250 ML 250 ML IV SCH ×2 (00:15→12:15)
[2018-09-18] MEDS: ALBUTEROL/IPRATROPIUM 3 ML NEB NEB SCH ×2 (01:00→07:00)
[2018-09-18 05:56] LABS: BASOPHILS # (AUTO) 0.1 (0.0-0.1); BASOPHILS % 0.7 % (0.0-1.0); EOSINOPHILS # (AUTO) 0.1 (0.0-0.4); EOSINOPHILS % 1.6 % (0.0-6.0); HEMATOCRIT 36.4 % (34.2-44.1); LYMPHOCYTES # (AUTO) 1.3 (1.0-3.2); LYMPHOCYTES % 19.2 % (18.0-39.1); MEAN CORPUSCULAR VOLUME 94.1 fL (81-99); MONOCYTES # (AUTO) 0.8 (0.2-0.8); MONOCYTES % 12.3 % (4.4-11.3); NEUTROPHILS # (AUTO) 4.5 (2.1-6.9); NEUTROPHILS % 65.9 % (38.7-80.0); PLATELET COUNT 221 x10e3/uL (140-360); RED BLOOD COUNT 3.87 x10e6/uL (3.6-5.1); RED CELL DISTRIBUTION WIDTH 11.7 % (11.7-14.4)
[2018-09-18 06:14] LABS: ANION GAP 12.2 mmol/L (8-16); CALCIUM 8.5 mg/dL (8.4-10.2); CREATININE, SERUM 1.33 mg/dL (0.57-1.11); POTASSIUM 3.2 mmol/L (3.5-5.1)
[2018-09-18] MEDS ORDERED: POTASSIUM CHLORIDE 20 MEQ TAB CR PO NR (07:04)
[2018-09-18] MEDS ORDERED: TESSALON PERLE100 MG PO (07:51)
[2018-09-18] MEDS ORDERED: ASCORBIC ACID500 MG PO (07:51)
[2018-09-18] MEDS ORDERED: MAGNESIUM OXID400 MG PO (07:51)
[2018-09-18] MEDS ORDERED: Multivitamins/Minerals PO (07:51)
[2018-09-18] MEDS ORDERED: ZINC SULFATE220 M1 PO (07:51)
[2018-09-18] MEDS ORDERED: POTASSIUM CHLORIDE 20 MEQ TAB CR PO SCH (08:00)
[2018-09-18] MEDS ORDERED: FUROSEMIDE INJ 10 MG/ML 2 ML VIAL IV NR (08:00)
[2018-09-18] MEDS ORDERED: HYDROCHLOROTHIAZIDE 25 MG TAB PO NR (08:00)
[2018-09-18] MEDS: MAGNESIUM OXIDE 400 MG TAB PO SCH ×2 (08:35→17:00)
[2018-09-18] MEDS: APIXABAN 5 MG TABLET PO SCH ×2 (08:35→17:00)
[2018-09-18] MEDS: PANTOPRAZOLE SOD 40 MG TABEC PO SCH (08:35)
[2018-09-18] MEDS: MULTIVITAMINS/MINERALS TAB PO SCH (08:35)
[2018-09-18] MEDS: FAMOTIDINE 20 MG TAB PO SCH ×2 (08:35→17:00)
[2018-09-18] MEDS: ZINC SULFATE 220 MG CAP PO SCH (08:36)
[2018-09-18] MEDS: BENZONATATE 100 MG CAP PO SCH ×2 (08:36→17:00)
[2018-09-18] MEDS: ASCORBIC ACID 500 MG TAB PO SCH ×2 (08:36→17:00)
--- NOTE | 2018-09-18 12:33 | NUR ---
CM SPOKE TO PATIENT, PATIENT DAUGHTER AND PATIENT REGARDING IV ABX INFUSION AT HOME. PATIENT AND FAMILY VERBALLY AGREED TO IV ABX AT THE HOME TO EDUCATE ABOUT THE PROCESS AND INFUSE IV ABX. PATIENT AND FAMILY GIVEN CHOICES FOR IV ABX COMPANIES. PATIENT AND FAMILY CHOSE [facility]. CLINICAL SENT TO [place]. PENDING ACCEPTANCE FOR DISCHARGE. [facility] Address: [address] [place] [address] FAX: [phone] LIAISON: ASHLY
--- NOTE | 2018-09-18 12:36 | NUR ---
DISCHARGE DISPOSITION: PATIENT DISCHARGING HOME WITH OUTPATIENT WOUND CARE SERVICES WITH: [facility] OUT[facility] [address] [facility] [address] [place] [address] (p) [phone] (f) [phone] TENTATIVE APPOINTMENT DATE: SUNDAY SEPTEMBER 23, 2018 @ 08:00 A.M. CM CONFIRMED WITH WOUND CARE CLINIC: SAUNDRA AND HOME IV ANTIBIOTIC INFUSION SERVICES FROM: [facility] Address: [address] [place] [address] FAX: [phone] LIAISON: ASHLY Addendum: 09/18/18 at 1245 by Katlyn Vu CM copy given to patient daughter at bedside.
--- NOTE | 2018-09-18 12:51 | NUR ---
CM SPOKE TO PATIENT AND PATIENT DAUGHTER AT BEDSIDE REGARDING IMM. IMM LETTER GIVEN WITH EXPLANATION BASED ON ANTICIPATED DISCHARGE DATE. 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 CM CONTACT INFORMATION GIVEN TO PATIENT FOR ANY NEEDS OR CONCERNS. PATIENT WITH NO FURTHER QUESTIONS.
--- NOTE | 2018-09-18 12:57 | NUR ---
Renée Lozano aware of vanc trough 34. See orders
--- NOTE | 2018-09-18 12:57 | NUR ---
CM SPOKE TO BEDSIDE NURSE MORGAN REGARDING HOME IV ABX INFUSION. VANCOMYCIN TROUGH WAS 34. MD STATES TO HOLD OFF ON SETTING UP IV ABX UNTIL AFTER RANDOM VANCOMYCIN IN AM. CM EMAILED WEEKEND CM TEAM TO FOLLOW UP AND FAX [facility] UPDATED ORDERS.
--- NOTE | 2018-09-18 14:06 | Diagnostic Imaging Report ---
Examination: Single AP view of the chest. COMPARISON: 09/17/2018 INDICATION: PICC placement DISCUSSION: Tip of right upper extremity PICC projects over the mid superior vena cava. Lungs remain well-inflated and without focal consolidation or effusion. Right upper lobe calcified granuloma. Stable cardiomediastinal contour with mild prominence of the central pulmonary vasculature. No acute osseous abnormality. IMPRESSION: Tip of right upper extremity PICC projects over the mid superior vena cava. Otherwise stable chest relative to 09/17/2018. Signed by: Dr. Barrington Miller M.D. on 09/18/2018 2:03 PM
[2018-09-18] MEDS ORDERED: SODIUM CHLORIDE 0.9% 1000ML 1,000 ML IV ONE (15:45)
--- NOTE | 2018-09-18 19:20 | NUR ---
Bedside report given to oncoming nurse. No s/s of acute distress noted. at bedside.
--- NOTE | 2018-09-18 19:27 | NUR ---
Patient received lying in bed. AAO x 3. Family at bedside. Patient had no complaints of pain. Respirations even and non-labored. IVF infusing at 100 cc/hr. Dressing to left gluteal CDI. Fall precautions implemented. Call light within reach.
[2018-09-18] MEDS: METOPROLOL SUCCINATE 50 MG TAB XL PO SCH (21:24)
[2018-09-18] MEDS: PRAVASTATIN 20 MG TAB PO SCH (21:58)
[2018-09-19] VITALS (7 sets, daily range): BP systolic 104–124; BP diastolic 54–68
--- NOTE | 2018-09-19 01:30 | NUR ---
Telemetry department called stating patient is AFIB--RVR with a heart rate of 172. Lopressor INJ given as per eMAR. Will continue to monitor.
[2018-09-19] MEDS: METOPROLOL TARTRATE INJ 1 MG/ML VIAL IV PRN (01:33)
--- NOTE | 2018-09-19 01:45 | NUR ---
Stool specimen sent to lab for analysis.
--- NOTE | 2018-09-19 02:00 | NUR ---
Patient's heart rate re-checked and recorded as 138. Will continue to monitor.
--- NOTE | 2018-09-19 04:50 | NUR ---
Patient in AFIB with a heart rate of 122. Lopressor INJ not due at this time. Will continue to monitor.
[2018-09-19 05:51] LABS: BASOPHILS % 0.5 % (0.0-1.0); EOSINOPHILS # (AUTO) 0.1 (0.0-0.4); EOSINOPHILS % 0.9 % (0.0-6.0); HEMATOCRIT 34.2 % (34.2-44.1); HEMOGLOBIN 11.3 g/dL (12.0-16.0); LYMPHOCYTES # (AUTO) 1.2 (1.0-3.2); LYMPHOCYTES % 16.2 % (18.0-39.1); MEAN CORPUSCULAR HEMOGLOBIN 31.3 pg (28-32); MEAN CORPUSCULAR VOLUME 94.7 fL (81-99); MONOCYTES # (AUTO) 0.7 (0.2-0.8); NEUTROPHILS # (AUTO) 5.3 (2.1-6.9); NEUTROPHILS % 71.9 % (38.7-80.0); PLATELET COUNT 219 x10e3/uL (140-360); RED BLOOD COUNT 3.61 x10e6/uL (3.6-5.1); RED CELL DISTRIBUTION WIDTH 11.6 % (11.7-14.4)
[2018-09-19 06:10] LABS: ANION GAP 11.7 mmol/L (8-16); CALCIUM 8.5 mg/dL (8.4-10.2); CREATININE, SERUM 1.53 mg/dL (0.57-1.11); MAGNESIUM 1.9 MG/DL (1.3-2.1); POTASSIUM 3.7 mmol/L (3.5-5.1)
--- NOTE | 2018-09-19 07:00 | NUR ---
Patient resting comfortably. Shift report given to oncoming nurse.
--- NOTE | 2018-09-19 07:14 | NUR ---
pt awake resp even and unlabored at this time no distress noted , pt able to make needs known, pt has family members at bedside, call light in reach.
[2018-09-19] MEDS ORDERED: HYDROCHLOROTHIAZIDE 25 MG TAB PO SCH (09:30)
[2018-09-19] MEDS ORDERED: SODIUM CHLORIDE 0.9% 500ML 500 ML IV ONE ×2 (09:30→13:30)
[2018-09-19] MEDS: ASCORBIC ACID 500 MG TAB PO SCH ×2 (09:37→17:00)
[2018-09-19] MEDS: MULTIVITAMINS/MINERALS TAB PO SCH (09:37)
[2018-09-19] MEDS: ZINC SULFATE 220 MG CAP PO SCH (09:37)
[2018-09-19] MEDS: BENZONATATE 100 MG CAP PO SCH ×2 (09:37→17:00)
[2018-09-19] MEDS: APIXABAN 5 MG TABLET PO SCH ×2 (09:37→17:00)
[2018-09-19] MEDS: FAMOTIDINE 20 MG TAB PO SCH ×2 (09:38→16:30)
[2018-09-19] MEDS: MAGNESIUM OXIDE 400 MG TAB PO SCH ×2 (09:38→17:00)
[2018-09-19] MEDS: PANTOPRAZOLE SOD 40 MG TABEC PO SCH (09:38)
[2018-09-19] MEDS: GUAIFENESIN 600MG/DEXTROMETHORPHAN 30MG TABSR PO SCH ×2 (09:50→17:00)
[2018-09-19] MEDS: AMIODARONE HCL 200 MG TAB PO SCH (17:00)
[2018-09-19] MEDS ORDERED: DIGOXIN 0.25 MG TAB PO ONE (17:00)
--- NOTE | 2018-09-19 17:00 | NUR ---
pt up in chair at bedside. tolerating well family member at bedside.
[2018-09-19] MEDS: METOPROLOL TARTRATE 50 MG TAB PO SCH (18:52)
--- NOTE | 2018-09-19 19:23 | NUR ---
dressing removed form pt buttock abscess, regular dry dressing applied no iodofoam at this time as stated by , pt tolerated well.
--- NOTE | 2018-09-19 19:35 | NUR ---
report given to oncoming nurse, for continued care.
--- NOTE | 2018-09-19 19:36 | NUR ---
report given to oncoming nurse, for continued care.
--- NOTE | 2018-09-19 19:38 | NUR ---
Patient received sitting in chair, at bedside. AAO x 3. No c/o pain. No signs of respiratory distress. Dressing to left gluteal clean, dry and intact. Call light within reach.
--- NOTE | 2018-09-19 20:51 | Consultation ---
DATE OF CONSULTATION: 09/19/2018 Cardiac consultation. REASON FOR CONSULTATION: Atrial fibrillation with rapid ventricular response. HISTORY: This is a 73-year-old lady, who came to this institution complaining of rectal abscess. This started two weeks prior to the admission. She underwent surgical intervention on that. With that, the patient's culture showed MRSA. The patient had appropriate care. The patient is known with history of paroxysmal atrial fibrillation and hyperlipidemia. She is on Eliquis and she is on pravastatin. The patient went to atrial fibrillation with rapid ventricular response. Cardiac consultation is obtained. The patient is seen and evaluated. Cardiac ross, she did have surgery of ASD repair [place] [address] Gurrola. There is no active cardiovascular system complaint. She does have history of atrial fibrillation and she is followed by Dr. Demetri tabor. She is on Eliquis. She is on pravastatin also 40 mg a day. She is on metoprolol succinate 50 mg at bedtime. ALLERGIES: FOR SULFA, DOXYCYCLINE, PREDNISONE, LISINOPRIL. PAST MEDICAL HISTORY: 1. ASD repair. 2. Paroxysmal atrial fibrillation. 3. GERD. 4. Hyperlipidemia. FAMILY HISTORY: Noncontributory. PHYSICAL EXAMINATION: VITAL SIGNS: Height of 5 feet and weight of 135 pounds. Heart rate of 140 and irregularly irregular of atrial fibrillation. Blood pressure 100/60. Respiratory rate of 20. Temperature of 98 Fahrenheit. HEENT: Pupils are equal and reactive. NECK: No elevation of jugular venous pulsation. CHEST: Bilateral crackles with decreased air entry in bases. HEART: Irregularly irregular rate of atrial fibrillation. Normal first and second heart sounds. ABDOMEN: Soft with good bowel sounds. EXTREMITIES: Mild peripheral edema. NEUROLOGIC: Nonfocal. LABORATORY DATA: Most recent lab showed a creatinine of 1.53, which is very high for this patient's weight. Sodium of 142 and potassium 3.7. White blood cell count of 7.4, hemoglobin of 11.3, hematocrit 34%, and platelet count of 219,000. EKG on admission showing normal sinus rhythm. Current telemetry showed atrial fibrillation. CURRENT MEDICATIONS: 1. Eliquis 5 mg twice a day. 2. Vancomycin. 3. Pravastatin. 4. Toprol-XL 50 mg a day. ASSESSMENT AND PLAN: 1. Status post rectal abscess surgery. 2. History of paroxysmal atrial fibrillation. 3. Status post atrial septal defect repair. 4. The patient currently in atrial fibrillation with rapid ventricular response. 5. Of note, the creatinine is 1.53, which is high for this patient's size. Cardiac ross my recommendation will be as follow. We will use shorter acting metoprolol rather than Toprol-XL to try to control the rate. We will give her 50 mg every 6 hours with parameter. We will give her one dose of digoxin 0.5 mg a day. We will start her on amiodarone 200 mg twice a day. We will continue definitely Eliquis and we will consider shifting if the patient converted to normal sinus rhythm to Multaq. All this discussed and explained to the patient depending on her course, further steps to be done. Option of long-term planned treatment for atrial fibrillation. The patient to be discussed with her own ramp agent. All this explained to the patient's daughter who are at the bedside and she was translating. MD CHETAN Benitez/PARVEEN /[id number]
[2018-09-19] MEDS: PRAVASTATIN 20 MG TAB PO SCH (21:28)
[2018-09-20] VITALS (8 sets, daily range): BP systolic 96–116; BP diastolic 51–82
[2018-09-20] MEDS: METOPROLOL TARTRATE 50 MG TAB PO SCH ×3 (00:27→12:00)
--- NOTE | 2018-09-20 07:09 | NUR ---
pt awake resp even and unlabored at this time, pt has family at bedside, pt has no distress noted, pt amb to restroom at this time, will cont to monitor.
--- NOTE | 2018-09-20 07:18 | NUR ---
Walking rounds done. Shift report given to oncoming nurse about patient status.
[2018-09-20] MEDS: FAMOTIDINE 20 MG TAB PO SCH ×2 (07:30→16:30)
[2018-09-20] MEDS: PANTOPRAZOLE SOD 40 MG TABEC PO SCH (07:30)
[2018-09-20 07:34] LABS: BASOPHILS % 0.4 % (0.0-1.0); EOSINOPHILS # (AUTO) 0.1 (0.0-0.4); EOSINOPHILS % 0.8 % (0.0-6.0); HEMATOCRIT 33.5 % (34.2-44.1); HEMOGLOBIN 11.2 g/dL (12.0-16.0); LYMPHOCYTES # (AUTO) 1.3 (1.0-3.2); LYMPHOCYTES % 13.2 % (18.0-39.1); MEAN CORPUSCULAR HEMOGLOBIN 31.5 pg (28-32); MEAN CORPUSCULAR HGB CONC 33.4 g/dL (31-35); MEAN CORPUSCULAR VOLUME 94.4 fL (81-99); MONOCYTES # (AUTO) 1.1 (0.2-0.8); MONOCYTES % 10.8 % (4.4-11.3); NEUTROPHILS # (AUTO) 7.3 (2.1-6.9); NEUTROPHILS % 74.4 % (38.7-80.0); PLATELET COUNT 244 x10e3/uL (140-360); RED BLOOD COUNT 3.55 x10e6/uL (3.6-5.1); RED CELL DISTRIBUTION WIDTH 11.7 % (11.7-14.4)
[2018-09-20 07:58] LABS: ALBUMIN 2.3 g/dL (3.5-5.0); ALBUMIN/GLOBULIN RATIO 0.8 (0.8-2.0); ANION GAP 10.5 mmol/L (8-16); CALCIUM 8.4 mg/dL (8.4-10.2); CREATININE, SERUM 1.57 mg/dL (0.57-1.11); POTASSIUM 3.5 mmol/L (3.5-5.1)
[2018-09-20 08:18] LABS: THYROID STIMULATING HORMONE 0.562 uIU/mL (0.350-4.940)
[2018-09-20] MEDS: MULTIVITAMINS/MINERALS TAB PO SCH (09:00)
[2018-09-20] MEDS: APIXABAN 5 MG TABLET PO SCH ×2 (09:00→17:00)
[2018-09-20] MEDS: AMIODARONE HCL 200 MG TAB PO SCH ×2 (09:00→17:00)
[2018-09-20] MEDS: MAGNESIUM OXIDE 400 MG TAB PO SCH ×2 (09:00→17:00)
[2018-09-20] MEDS: ASCORBIC ACID 500 MG TAB PO SCH ×2 (09:00→17:00)
[2018-09-20] MEDS: GUAIFENESIN 600MG/DEXTROMETHORPHAN 30MG TABSR PO SCH ×2 (09:00→17:00)
[2018-09-20] MEDS: ZINC SULFATE 220 MG CAP PO SCH (09:00)
[2018-09-20] MEDS: BENZONATATE 100 MG CAP PO SCH ×2 (09:00→17:00)
[2018-09-20] MEDS: SODIUM CHLORIDE 0.9% 1000ML 1,000 ML IV SCH (11:00)
--- NOTE | 2018-09-20 17:47 | NUR ---
Nutrition Screen Note RD Recommendation for Physician: Continue diet as ordered Plan of Care: RD following, monitoring for tolerance and adequacy Nutrition reason for involvement: LOS Primary Diagnose(s): yoselin anal abscess PMH:hyperlipidemia, atrial fibrillation, GERD Ht:60 in Wt:123lb BMI:24 kg/m2 IBW:100lb RD Assessment: (09/20/2018) Chart reviewed. Labs and meds reviewed. Initial encounter with patient. Daughter translated at time of visit. Pt with is eating better. 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 Pt denies any nausea, vomiting or diarrhea. No wt changes. Current Diet: Cardiac diet Malnutrition Evaluation (09/20/2018) The patient does not meet criteria for a specified degree of malnutrition at this time. Will re-evaluate at follow-up as appropriate. Diet Education Needs Assessment: Diet education not indicated. Nutrition Care Level: Low Signed: Rob Argueta RD, LD, [facility]
--- NOTE | 2018-09-20 19:32 | NUR ---
Patient sitting in chair by bedside. AAO x 3. Daughter present. No acute distress noted. Call light within reach.
[2018-09-20] MEDS: PRAVASTATIN 20 MG TAB PO SCH (21:45)
[2018-09-21] VITALS (8 sets, daily range): BP systolic 89–118; BP diastolic 53–58
[2018-09-21] MEDS: METOPROLOL TARTRATE 50 MG TAB PO SCH ×2 (00:35→06:22)
[2018-09-21] MEDS: SODIUM CHLORIDE 0.9% 1000ML 1,000 ML IV SCH ×2 (00:36→11:30)
--- NOTE | 2018-09-21 01:01 | NUR ---
Wound dressing to left gluteal changed. No drainage noted. Surrounding wound region erythematous. Patient tolerated well.
[2018-09-21 05:21] LABS: BASOPHILS % 0.4 % (0.0-1.0); EOSINOPHILS # (AUTO) 0.1 (0.0-0.4); EOSINOPHILS % 1.5 % (0.0-6.0); HEMATOCRIT 32.5 % (34.2-44.1); HEMOGLOBIN 10.8 g/dL (12.0-16.0); LYMPHOCYTES # (AUTO) 1.4 (1.0-3.2); LYMPHOCYTES % 15.5 % (18.0-39.1); MEAN CORPUSCULAR HEMOGLOBIN 31.6 pg (28-32); MEAN CORPUSCULAR HGB CONC 33.2 g/dL (31-35); MONOCYTES # (AUTO) 0.9 (0.2-0.8); MONOCYTES % 10.4 % (4.4-11.3); NEUTROPHILS # (AUTO) 6.5 (2.1-6.9); NEUTROPHILS % 71.5 % (38.7-80.0); PLATELET COUNT 253 x10e3/uL (140-360); RED BLOOD COUNT 3.42 x10e6/uL (3.6-5.1); RED CELL DISTRIBUTION WIDTH 11.9 % (11.7-14.4)
[2018-09-21 05:41] LABS: ANION GAP 10.4 mmol/L (8-16); CALCIUM 8.5 mg/dL (8.4-10.2); CREATININE, SERUM 1.58 mg/dL (0.57-1.11); MAGNESIUM 2.1 MG/DL (1.3-2.1); POTASSIUM 3.4 mmol/L (3.5-5.1)
--- NOTE | 2018-09-21 06:43 | NUR ---
Shift report given to oncoming nurse.
--- NOTE | 2018-09-21 07:07 | NUR ---
pt awake sitting in chair at bedside, resp even and unlabored at this time no distress noted, pt has no c/o pain when asked , family at bedside, call light in reach.
[2018-09-21] MEDS ORDERED: VANCOMYCIN 1GM/NS 250 ML 250 ML IV SCH (07:30)
[2018-09-21] MEDS: MULTIVITAMINS/MINERALS TAB PO SCH (09:00)
[2018-09-21] MEDS: ASCORBIC ACID 500 MG TAB PO SCH ×2 (09:00→18:29)
[2018-09-21] MEDS: ZINC SULFATE 220 MG CAP PO SCH (09:00)
[2018-09-21] MEDS: BENZONATATE 100 MG CAP PO SCH ×2 (09:00→18:28)
[2018-09-21] MEDS: GUAIFENESIN 600MG/DEXTROMETHORPHAN 30MG TABSR PO SCH ×2 (09:15→18:28)
[2018-09-21] MEDS: APIXABAN 5 MG TABLET PO SCH ×2 (09:15→18:28)
[2018-09-21] MEDS: FAMOTIDINE 20 MG TAB PO SCH ×2 (09:15→18:28)
[2018-09-21] MEDS: PANTOPRAZOLE SOD 40 MG TABEC PO SCH (09:15)
[2018-09-21] MEDS: AMIODARONE HCL 200 MG TAB PO SCH (09:15)
[2018-09-21] MEDS: MAGNESIUM OXIDE 400 MG TAB PO SCH ×2 (09:15→18:28)
--- NOTE | 2018-09-21 10:12 | NUR ---
EDUCATED ABOUT IMM, SIGNED, FILED IN CHART, WITH COPY LEFT WITH FAMILY AT BEDSIDE.
[2018-09-21] MEDS ORDERED: POTASSIUM CHLORIDE 20 MEQ TAB CR PO ONE (11:22)
--- NOTE | 2018-09-21 15:50 | NUR ---
b/p retake manual 90/55, 87p. pt alert resp even and unlabored, pt sitting in chair at bedside, no c/o pain no distress noted. call light in reach , family at bedside.
[2018-09-21] MEDS: DRONEDARONE 400 MG TAB PO SCH (18:28)
[2018-09-21] MEDS: OYST-CAL-D 500MG TABLET PO SCH ×2 (18:28→21:00)
--- NOTE | 2018-09-21 19:28 | NUR ---
report given to oncoming nurse, for continued care.
[2018-09-21] MEDS: PRAVASTATIN 20 MG TAB PO SCH (20:30)
[2018-09-22] VITALS: BP 116/53
[2018-09-22 04:00] VITALS: BP 112/55
[2018-09-22 06:01] LABS: ANION GAP 9.3 mmol/L (8-16); CALCIUM 8.1 mg/dL (8.4-10.2); CREATININE, SERUM 1.37 mg/dL (0.57-1.11); MAGNESIUM 1.9 MG/DL (1.3-2.1); POTASSIUM 3.3 mmol/L (3.5-5.1)
[2018-09-22 06:10] LABS: BASOPHILS % 0.4 % (0.0-1.0); EOSINOPHILS # (AUTO) 0.1 (0.0-0.4); EOSINOPHILS % 1.8 % (0.0-6.0); HEMATOCRIT 29.3 % (34.2-44.1); HEMOGLOBIN 9.7 g/dL (12.0-16.0); LYMPHOCYTES # (AUTO) 1.2 (1.0-3.2); LYMPHOCYTES % 15.5 % (18.0-39.1); MEAN CORPUSCULAR HEMOGLOBIN 31.5 pg (28-32); MEAN CORPUSCULAR HGB CONC 33.1 g/dL (31-35); MEAN CORPUSCULAR VOLUME 95.1 fL (81-99); MONOCYTES # (AUTO) 0.7 (0.2-0.8); MONOCYTES % 9.5 % (4.4-11.3); NEUTROPHILS # (AUTO) 5.5 (2.1-6.9); NEUTROPHILS % 72.1 % (38.7-80.0); PLATELET COUNT 207 x10e3/uL (140-360); RED BLOOD COUNT 3.08 x10e6/uL (3.6-5.1); RED CELL DISTRIBUTION WIDTH 11.9 % (11.7-14.4)
--- NOTE | 2018-09-22 07:29 | NUR ---
REPORT WAS GIVEN TO ONCOMING NURSE, PATIENT SHOWS NO SIGNS OF DISTRESS.
[2018-09-22] MEDS: PANTOPRAZOLE SOD 40 MG TABEC PO SCH (07:30)
[2018-09-22] MEDS: FAMOTIDINE 20 MG TAB PO SCH (07:30)
--- NOTE | 2018-09-22 07:45 | NUR ---
call to Dr. Toure about pt doxycycline medication order.
[2018-09-22] MEDS: DRONEDARONE 400 MG TAB PO SCH (08:00)
[2018-09-22 08:08] VITALS: BP 105/51
--- NOTE | 2018-09-22 08:34 | NUR ---
2nd call to Dr. ovalles a/s Marcia , re: antibiotics for pt.
[2018-09-22] MEDS: MULTIVITAMINS/MINERALS TAB PO SCH (09:00)
[2018-09-22] MEDS: ASCORBIC ACID 500 MG TAB PO SCH (09:00)
[2018-09-22] MEDS: BENZONATATE 100 MG CAP PO SCH (09:00)
[2018-09-22] MEDS: MAGNESIUM OXIDE 400 MG TAB PO SCH (09:00)
[2018-09-22] MEDS: GUAIFENESIN 600MG/DEXTROMETHORPHAN 30MG TABSR PO SCH (09:00)
[2018-09-22] MEDS: OYST-CAL-D 500MG TABLET PO SCH ×2 (09:00→15:00)
[2018-09-22] MEDS: APIXABAN 5 MG TABLET PO SCH (09:00)
[2018-09-22] MEDS: ZINC SULFATE 220 MG CAP PO SCH (09:00)
[2018-09-22] MEDS ORDERED: DOXYCYCLINE HYCLATE TABLET 100 MG TAB PO SCH (09:00)
--- NOTE | 2018-09-22 10:10 | NUR ---
pt discharged home with family members and prescriptions, pt and family members were educated on medication, and was asked to follow up with PCP, infectious disease, and online retailer, [employer] line d/krishna by charged nurse, Naya ROMERO. dressing site clean and intact.
[2018-09-22] MEDS: SODIUM CHLORIDE 0.9% 1000ML 1,000 ML IV SCH (11:13)
[2018-09-22 11:54] VITALS: BP 117/55
--- NOTE | 2018-09-22 15:10 | NUR ---
Nutrition Screen Note RD Recommendation for Physician: Continue diet as ordered Plan of Care: RD following, monitoring for tolerance and adequacy Nutrition reason for involvement: RN consult cultural diet Primary Diagnose(s): yoselin anal abscess PMH: hyperlipidemia, atrial fibrillation, GERD Ht:60 in Wt:123lb BMI:24 kg/m2 IBW:100lb RD Assessment: (09/22/2018) Chart reviewed. Renal function has improved. Visited pt in the room. Pt reported poor appetite. No complains of nausea and vomiting. MD ordered Ensure/ Nepro; pt was willing to try. Pt didnt feel like eating. Pt only ordered soymilk, fruit cups and Ensure for dinner tonight. Discussed menu options with pt and family. Family thought pt was supposed to go home today and didnt want to order anything else. Will continue to monitor and follow. (09/20/2018) Chart reviewed. Labs and meds reviewed. Initial encounter with patient. Daughter translated at time of visit. Pt with is eating better. 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 Pt denies any nausea, vomiting or diarrhea. No wt changes. Current Diet: renal diet Malnutrition Evaluation (09/20/2018) The patient does not meet criteria for a specified degree of malnutrition at this time. Will re-evaluate at follow-up as appropriate. Diet Education Needs Assessment: Diet education not indicated. Nutrition Care Level: Low Signed: Rosi Gottlieb, , RD, LD
[2018-09-22 15:51] VITALS: BP 112/57
[2018-09-22] MEDS ORDERED: MULTAQ 400MG T400 MG PO (16:00)
[2018-09-22] MEDS ORDERED: ZYVOX600 MG PO (16:00)
[2018-09-22] MEDS ORDERED: POTASSIUM CHLORIDE 20 MEQ TAB CR PO NR (16:52)
[2018-09-22] MEDS ORDERED: METOPROLOL SUCCINATE 50 MG TAB XL PO SCH (17:00)
--- NOTE | 2018-09-22 18:31 | NUR ---
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 dressing site clean and intact.
[2018-09-22] MEDS ORDERED: LINEZOLID 600 MG TAB PO SCH (21:00)
--- NOTE | 2018-10-08 03:49 | Operative Report ---
DATE OF PROCEDURE: 09/15/2018 SURGEON: Barrington Gayle MD PREOPERATIVE DIAGNOSIS: Perianal abscess. POSTOPERATIVE DIAGNOSIS: Perianal abscess. OPERATIVE PROCEDURE: Incision and drainage of perianal abscess. ANESTHESIA: General. INDICATION: The patient is a 73-year-old female with history of perianal pain for 5 days, diagnosing an abscess formation. The patient had consented for drainage under anesthesia. Attendant risks discussed. DESCRIPTION OF THE PROCEDURE: The patient was brought to the OR, intubated, she was then repositioned to the right lateral decubitus position with the left side up. The perianal areas prepped with Betadine and draped in sterile fashion. An abscess is located at the 3 o'clock position and a radial incision is made directly overlying the site of the abscess 1 cm from the anal orifice. Dissection is carried into the abscess cavity and a large amount of purulent material was evacuated and using digital exploration, the cavity is explored and all loculations broken up. The cavity was then packed with iodoform gauze for hemostasis, which was achieved. Dressing was then applied. The patient are procedure well, was extubated, and transported to recovery room. ESTIMATED BLOOD LOSS: 5 mL. MD LLUVIA Vaca/MODL /[id number]
== END 2018-09-22 18:14 | disposition home or self-care (01) | DRG 854 ==
LOC: EDBD → FSED 21:36 → ERHOLD 09-14 00:23 → MED/SURG2 09-14 02:09
PROVIDERS: ADMIT Internal Medicine; ATTEND Internal Medicine
PROC: 0D9Q0ZZ Drainage of Anus, Open Approach (ICD-10-PCS; 2018-09-15)
PROC: 02HV33Z Insertion of Infusion Device into Superior Vena Cava, Percutaneous Approach (ICD-10-PCS; principal; 2018-09-18)
PROC: 02HV33Z Insertion of Infusion Device into Superior Vena Cava, Percutaneous Approach (ICD-10-PCS; 2018-09-18)
PROC: B548ZZA Ultrasonography of Superior Vena Cava, Guidance (ICD-10-PCS; 2018-09-18)
DX: A41.9 Sepsis, unspecified organism (principal); K61.0 Anal abscess; L02.31 Cutaneous abscess of buttock; L03.317 Cellulitis of buttock; N17.9 Acute kidney failure, unspecified; E11.9 Type 2 diabetes mellitus without complications; I48.0 Paroxysmal atrial fibrillation; I10 Essential (primary) hypertension; K21.9 Gastro-esophageal reflux disease without esophagitis; E78.5 Hyperlipidemia, unspecified; Z88.2 Allergy status to sulfonamides; Z88.8 Allergy status to other drugs, medicaments and biological substances; Z79.01 Long term (current) use of anticoagulants; I25.10 Atherosclerotic heart disease of native coronary artery without angina pectoris; R53.81 Other malaise; R05 Cough; B95.62 Methicillin resistant Staphylococcus aureus infection as the cause of diseases classified elsewhere; E87.6 Hypokalemia
CPT/HCPCS: 36415; 36569; 71045; 74177; 80048; 80053; 80202; 81003; 83036; 83735; 83880; 84100; 84439; 84443; 85025; 87045; 87071; 87075; 87186; 87205; 93005; 93306; 94640; 96360; 99284; J0692; J1100; J1160; J1885; J1940; J2001; J2405; J2543; J3370; J3480; J7030; J7040; Q9967

== ENCOUNTER → 2018-09-25 | Outpatient (RCR) | payer MEDICARE, OTHER ==
--- NOTE | 2018-09-23 02:11 | Discharge Summary ---
PCP: Juma Guerrero MD. HISTORY OF PRESENT ILLNESS: The patient is a 31-urvo-awe-female, who was admitted with the complaints of perirectal pain and swelling that began 2 weeks ago. The wound had remained small until the Friday prior to admission and then the wound grew larger and the pain increased. The patient did not use antibiotics, but was applying a steroid and neosporin cream and hoping for improvement. PAST MEDICAL HISTORY: Includes: 1. Hyperlipidemia. 2. Atrial fibrillation. 3. Gastroesophageal reflux disease. PAST SURGICAL HISTORY: Includes atrial septal defect repair 10 years ago. FAMILY HISTORY: Noncontributory. SOCIAL HISTORY: Noncontributory. ALLERGIES: INCLUDE SULFA, DOXYCYCLINE, PREDNISONE, AND LISINOPRIL. ADMITTING DIAGNOSES: Includes: 1. Sepsis with perirectal cellulitis. 2. Atrial fibrillation. 3. Hyperlipidemia. 4. Gastroesophageal reflux disease. DISCHARGE DIAGNOSES: Includes: 1. Perirectal abscess with sepsis due to MRSA with recent elevated vancomycin level. 2. Paroxysmal atrial fibrillation. 3. Acute kidney injury due to elevated vancomycin trough level. 4. Inadequate oral intake. 5. Hyperlipidemia. 6. Gastroesophageal reflux disease. 7. Acute hypokalemia. 8. Communication barrier. LABORATORY DATA: On admission wbc's 11.58, hemoglobin 11, hematocrit 34.1, platelets 140. Sodium 140, potassium 4.3, chloride 114, BUN 10, creatinine 0.68, GFR greater than 60. Hemoglobin A1c 5.37%. B-type natriuretic peptide 852.7. Initial vancomycin trough level on September 15 was 3, on the it was 10.4, on the it was 34. Random vancomycin level on September 19 was 22.3 and on September 20 was 15.9. Vancomycin had to be held due to elevated trough levels and acute kidney injury. The patient's renal function is showing improvement. Today, BUN 10, creatinine 1.37, GFR 38, phosphorus 3.0, magnesium 1.9. B-type natriuretic peptide yesterday was 1356.2. Potassium level today 3.3. We will replace hypokalemia again today. CONSULTATIONS: Include Dr. Toure with Infectious Disease, Dr. Gayle with Surgery, Dr. Barraza with Cardiology. HOSPITAL COURSE: Cardiology was consulted for paroxymal atrial fibrillation. The patient's heart rate is 74 today. Initially it was planned that the patient be discharged on IV vancomycin with monitoring of trough levels as well as her kidney function, however, it was decided since she had some vancomycin toxicity during her stay, the patient can be discharged home on oral Zyvox 600 mg p.o. b.i.d. for 7 days. During her stay, the patient had packing of her perirectal abscess at times, which was monitored by surgical team, it was removed on September 19. The patient was IV vancomycin, Zosyn, and Flagyl per Infectious Disease during her stay. Metoprolol and Eliquis were continued for the atrial fibrillation. Upon discharge, the wound healing medications will be continued including ascorbic acid, magnesium oxide, zinc sulphate, multivitamin. Cardiology written prescriptions for Multaq 400 mg p.o. b.i.d., Eliquis 5 mg p.o. b.i.d., and metoprolol succinate ER 50 mg p.o. daily. The patient will continue renal diet for now. Activity level as tolerated. No change in physical examination. Vital signs today, temperature 97.7, heart rate 65, blood pressure 105/51, respirations 17, oxygen saturation 96%. Dictated by Douglas Ulrich NP MD CAROLINA Sawant/PARVEEN /[id number]
[~2018-09-25] MED LIST: ASCORBIC ACID500 MG PO; ELIQUIS PO; LIDOCAINE/PRILOCAINE 2.5-2.5% KIT ONE; MAGNESIUM OXID400 MG PO; METOPROLOL SUCC50 MG PO; MULTAQ 400MG T400 MG PO; Multivitamins/Minerals PO; PANTOPRAZOLE SO40 MG PO; PRAVASTATIN SOD40 MG; TESSALON PERLE100 MG PO; ZINC SULFATE220 M1 PO; ZYVOX600 MG PO
== END ==
LOC: EDBD → WCC 09-23 11:48
PROVIDERS: ATTEND Family Medicine
DX: T81.89XA Other complications of procedures, not elsewhere classified, initial encounter (principal); K61.39 Other ischiorectal abscess; A49.02 Methicillin resistant Staphylococcus aureus infection, unspecified site; I10 Essential (primary) hypertension; E78.00 Pure hypercholesterolemia, unspecified

== ENCOUNTER 2018-10-21 12:17 | Outpatient (RCR) | payer MEDICARE, OTHER ==
[~2018-10-21 12:17] MED LIST changes: -LIDOCAINE/PRILOCAINE 2.5-2.5% KIT ONE
== END 2018-10-25 | disposition home or self-care (01) ==
LOC: EDBD → WCC 12:17
PROVIDERS: ATTEND Family Medicine
DX: T81.89XA Other complications of procedures, not elsewhere classified, initial encounter (principal); A49.02 Methicillin resistant Staphylococcus aureus infection, unspecified site; K61.39 Other ischiorectal abscess; I10 Essential (primary) hypertension; E78.00 Pure hypercholesterolemia, unspecified